=== PATIENT | female | born 1955 | race Caucasian/White ===

== ENCOUNTER 2022-08-10 10:47 | Outpatient (CLI) | payer MEDICARE | END 2022-08-10 10:48 | disposition home or self-care (01) | LOC: CSHEKG 10:47 | PROVIDERS: ATTEND Internal Medicine Hematology & Oncology | DX: Z01.818 Encounter for other preprocedural examination (principal); C50.112 Malignant neoplasm of central portion of left female breast; C79.51 Secondary malignant neoplasm of bone | CPT/HCPCS: 93005; 93010 ==